=== PATIENT | female | born 1975 | race Caucasian/White ===

== ENCOUNTER → 2020-05-12 | Outpatient (CLI) | payer BC ==
[2020-05-12 07:43] LABS: EOSINOPHILS % 1.2 % (0.0-5.0); HEMATOCRIT. 40.2 %; HEMOGLOBIN. 13.7 g/dL; LYMPHOCYTES % 27.5 %; MEAN CORPUSCULAR HEMOGLOBIN 30.6 pg; MEAN CORPUSCULAR VOLUME 89.7 fL; MEAN PLATELET VOLUME 7.5 fl (7.4-10.4); MONOCYTES % 6.1 % (2.0-8.0); NEUTROPHILS % 64.2 %; PLATELET 266 x1000/uL (130-400); RED BLOOD CELL COUNT 4.48 mill/uL; RED CELL DISTRIBUTION WIDTH 12.8 % (11.6-14.6)
[2020-05-12 07:54] LABS: CLARITY URINE CLEAR (CLEAR); COLOR URINE YELLOW (YELLOW); KETONES URINE NEGATIVE (NEGATIVE); LEUKOCYTE ESTERASE URINE TRACE (NEGATIVE); NITRITE URINE NEGATIVE (NEGATIVE); OCCULT BLOOD URINE NEGATIVE (NEGATIVE); PROTEIN URINE NEGATIVE (NEGATIVE); SPECIFIC GRAVITY URINE 1.007 (1.005-1.030); UROBILINOGEN URINE 0.2 E.U./dL (0.2-1.0)
[2020-05-12 07:59] LABS: CHLORIDE 107 mEq/L (98-107)
[2020-05-12 08:07] LABS: LDL CHOLESTEROL 86 mg/dL (5-100)
[2020-05-12 08:09] LABS: HDL CHOLESTEROL 69 mg/dL (40-59); T4 FREE 1.01 ng/dL (0.76-1.46)
[2020-05-12 09:08] LABS: RHEUMATOID FACTOR SCREEN POSITIVE (NEGATIVE)
[2020-05-13 09:11] LABS: ESTRADIOL 82.3 pg/mL (.); FOLICLE STIMULATING HORMONE 3.7 mIU/mL (.); THYROID PEROXIDASE ANTIBODY < 9 IU/mL (0-34)
[2020-05-13 09:21] LABS: ANTI-NUCLEAR ANTIBODIES DIRECT Negative (Negative)
== END | disposition home or self-care (01) ==
LOC: EDSEX 07:09 → LAB 07:09
PROVIDERS: ATTEND Family Medicine
DX: M75.52 Bursitis of left shoulder (principal); R53.83 Other fatigue; M19.90 Unspecified osteoarthritis, unspecified site
CPT/HCPCS: 36415; 73030; 80053; 80061; 81003; 82670; 83001; 83036; 84403; 84436; 84439; 84443; 84481; 85025; 85651; 86038; 86141; 86376; 86430

== ENCOUNTER → 2020-11-11 | Outpatient (CLI) | payer BC ==
[2020-11-11 07:50] LABS: BASOPHILS % 0.7 % (0.0-2.0); EOSINOPHILS % 1.5 % (0.0-5.0); HEMATOCRIT. 40.1 % (36.0-48.0); HEMOGLOBIN. 13.3 g/dL (12.0-16.0); LYMPHOCYTES % 24.8 % (20.0-50.0); MEAN CORPUSCULAR HEMOGLOBIN 30.6 pg (28.0-32.0); MEAN PLATELET VOLUME 7.8 fl (7.4-10.4); MONOCYTES % 6.7 % (2.0-8.0); NEUTROPHILS % 66.3 % (40.0-76.0); PLATELET 256 x1000/uL (130-400); RED BLOOD CELL COUNT 4.36 mill/uL (4.2-5.4); RED CELL DISTRIBUTION WIDTH 13.1 % (11.6-14.6)
[2020-11-11 08:18] LABS: CHLORIDE 112 mEq/L (98-107)
[2020-11-11 08:34] LABS: LDL CHOLESTEROL 95 mg/dL (5-100)
[2020-11-11 08:35] LABS: HDL CHOLESTEROL 67 mg/dL (40-59); T4 FREE 0.92 ng/dL (0.76-1.46)
[2020-11-11 08:43] LABS: VITAMIN B12 SERUM 469 pg/mL (211-911)
[2020-11-12 06:07] LABS: ESTRADIOL 26.3 pg/mL (.); FOLICLE STIMULATING HORMONE 5.9 mIU/mL (.); THYROID PEROXIDASE ANTIBODY < 8 IU/mL (0-34); VITAMIN D 25-OH 34.4 ng/mL (30.0-100.0)
== END | disposition home or self-care (01) ==
LOC: LAB 07:24
PROVIDERS: ATTEND Family Medicine
DX: N95.1 Menopausal and female climacteric states (principal); E03.9 Hypothyroidism, unspecified; R53.83 Other fatigue
CPT/HCPCS: 36415; 80053; 80061; 82306; 82607; 82670; 83001; 83036; 84403; 84439; 84443; 84481; 85025; 86376